=== PATIENT | male | born 1995 | race Caucasian/White ===

== ENCOUNTER 2023-03-16 15:51 | Emergency (ER) | payer SELFPAY ==
[2023-03-16 16:03] VITALS: PULSE 75; RESP 18; TEMP 37.4; O2SAT 100
[2023-03-16 16:06] VITALS: BP 135/71
[2023-03-16 17:12] VITALS: BP 116/71; PULSE 84; RESP 16; O2SAT 98
--- NOTE | 2023-03-16 18:00 | DI.RAD_ITS ---
Exam(s) XR CLAVICLE RT EXAM: XR CLAVICLE RT CLINICAL HISTORY: trauma TECHNIQUE: 2D digital imaging was performed of the right clavicle. Two images were obtained. AP and axial views were obtained. COMPARISON: No exams were available for comparison FINDINGS: BONES: There is an acute for oblique fracture through the midshaft of the right clavicle. There is m inimal displacement. No bony destructive lesion is seen. JOINTS: No dislocation present. SOFT TISSUE: Normal IMPRESSION: Acute right clavicular fracture. DATA REPOSITORY: RADIATION DOSE DELIVERED:
--- NOTE | 2023-03-16 18:00 | DI.RAD_ITS ---
Exam(s) XR CHEST 2V PA LATERAL EXAM: XR CHEST 2V PA LATERAL CLINICAL HISTORY: trauma TECHNIQUE: 2D digital imaging was performed of the chest. Two images were obtained. PA and lateral views were obtained. COMPARISON: There are no priors for comparison. FINDINGS: MEDIASTINUM: Normal. HEART: Normal. PULMONARY VASCULATURE: Normal. LUNGS: Clear. PLEURAL SPACE: No pleural effusion or pneumothorax. BONE:Within normal limits for the patient's age. There is a minimally displaced fracture of the mids haft of the right clavicle. OTHER FINDINGS:Normal. IMPRESSION: 1. No acute pulmonary findings. 2. Acute right clavicular fracture. Please see the dedicated right clavicular x-ray report. DATA REPOSITORY: RADIATION DOSE DELIVERED:
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
--- NOTE | 2023-03-16 19:16 | DI.VRAD_ITS ---
PROCEDURE INFORMATION: Exam: XR Chest Exam date and time: 03/16/2023 18:35 Age: 27 years old Clinical indication: Injury or trauma; Fall; Blunt trauma (contusions or hematomas) TECHNIQUE: Imaging protocol: Radiologic exam of the chest. Views: 2 views. COMPARISON: No relevant prior studies available. FINDINGS: Lungs: No consolidation. Pleural spaces: No pleural effusion. No pneumothorax. Heart/Mediastinum: No cardiomegaly. Bones/joints: Acute right clavicular fracture; please see dedicated films. IMPRESSION: 1. No acute cardiopulmonary pathology. 2. Acute right clavicular fracture; please see dedicated films. Dictated and Authenticated by: Kady Woodward MD. Ordering:ANA MARÍA Constantino MD
[2023-03-16] MEDS: Ibuprofen 600 MG TAB PO (19:36)
== END 2023-03-16 19:36 | disposition home or self-care (01) ==
PROVIDERS: Emergency Provider Emergency Medicine
DX: S42.021A Displaced fracture of shaft of right clavicle, initial encounter for closed fracture (principal); V28.09XA Other motorcycle driver injured in noncollision transport accident in nontraffic accident, initial encounter; S20.219A Contusion of unspecified front wall of thorax, initial encounter
CPT/HCPCS: 99284; 71046; 73000; 99283

== ENCOUNTER 2023-08-05 11:19 | Emergency (ER) | payer SELFPAY ==
[2023-08-05 11:22] VITALS: BP 127/71; PULSE 82; RESP 18; TEMP 36.7; O2SAT 100
--- NOTE | 2023-08-05 11:30 | DI.RAD_ITS ---
Exam(s) XR FOREARM RT XR HAND RT COMPLETE XR WRIST RT COMPLETE EXAM: XR WRIST RT COMPLETE CLINICAL HISTORY: right wrist pain. TECHNIQUE: 2D digital imaging was performed. Three views of the wrist and hand. Two views of the f orearm.. COMPARISON: CR XR HAND RT COMPLETE from 08/05/2023 CR XR FOREARM RT from 08/05/2023 FINDINGS: BONES: There is a nondisplaced fracture through the proximal pole of the navicular. No additional ac [place] fractures are seen. Mild deformity of the distal ulna is likely secondary to an old fracture. Mil d negative ulnar variance. No bony destructive lesion is seen. JOINTS: The carpal bones are normally aligned. The elbow is normally aligned. SOFT TISSUE: Swelling IMPRESSION: Nondisplaced fracture proximal pole navicular. DATA REPOSITORY: RADIATION DOSE DELIVERED:
--- NOTE | 2023-08-05 11:30 | DI.RAD_ITS ---
Exam(s) XR FOREARM RT XR HAND RT COMPLETE XR WRIST RT COMPLETE EXAM: XR WRIST RT COMPLETE CLINICAL HISTORY: right wrist pain. TECHNIQUE: 2D digital imaging was performed. Three views of the wrist and hand. Two views of the f orearm.. COMPARISON: CR XR HAND RT COMPLETE from 08/05/2023 CR XR FOREARM RT from 08/05/2023 FINDINGS: BONES: There is a nondisplaced fracture through the proximal pole of the navicular. No additional ac [place] fractures are seen. Mild deformity of the distal ulna is likely secondary to an old fracture. Mil d negative ulnar variance. No bony destructive lesion is seen. JOINTS: The carpal bones are normally aligned. The elbow is normally aligned. SOFT TISSUE: Swelling IMPRESSION: Nondisplaced fracture proximal pole navicular. DATA REPOSITORY: RADIATION DOSE DELIVERED:
--- NOTE | 2023-08-05 11:30 | DI.RAD_ITS ---
Exam(s) XR FOREARM RT XR HAND RT COMPLETE XR WRIST RT COMPLETE EXAM: XR WRIST RT COMPLETE CLINICAL HISTORY: right wrist pain. TECHNIQUE: 2D digital imaging was performed. Three views of the wrist and hand. Two views of the f orearm.. COMPARISON: CR XR HAND RT COMPLETE from 08/05/2023 CR XR FOREARM RT from 08/05/2023 FINDINGS: BONES: There is a nondisplaced fracture through the proximal pole of the navicular. No additional ac [place] fractures are seen. Mild deformity of the distal ulna is likely secondary to an old fracture. Mil d negative ulnar variance. No bony destructive lesion is seen. JOINTS: The carpal bones are normally aligned. The elbow is normally aligned. SOFT TISSUE: Swelling IMPRESSION: Nondisplaced fracture proximal pole navicular. DATA REPOSITORY: RADIATION DOSE DELIVERED:
[2023-08-05] MEDS: Ibuprofen 600 MG TAB PO (11:40)
[2023-08-05] MEDS: Acetaminophen 500 MG TAB 1000 MG PO (11:40)
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
--- NOTE | 2023-08-05 13:35 | NUR.NOTE ---
Given to Care Managment the referral for [facility] Handdaina fx/Dr Du putting in referral. Want Care Management to check and be sure that pt has appt. Nursing Note:
== END 2023-08-05 13:40 | disposition home or self-care (01) ==
PROVIDERS: Emergency Provider Emergency Medicine
DX: S62.001A Unspecified fracture of navicular [scaphoid] bone of right wrist, initial encounter for closed fracture; Y93.55 Activity, bike riding; W19.XXXA Unspecified fall, initial encounter; M25.531 Pain in right wrist
CPT/HCPCS: 29125; 99284; 73090; 73110; 73130

== ENCOUNTER 2023-08-14 11:25 | Outpatient (CLI) | payer SELFPAY ==
--- NOTE | 2023-08-14 11:00 | DI.RAD_ITS ---
Exam(s) XR WRIST RT COMPL NAVICULAR EXAM: XR WRIST RT COMPL NAVICULAR CLINICAL HISTORY: WRIST F/U. TECHNIQUE: 2D digital imaging was performed of the right wrist. Four views were obtained. Scaphoid, PA, lateral and oblique views were obtained. COMPARISON: CR XR HAND RT COMPLETE from 08/05/2023 CR XR FOREARM RT from 08/05/2023 FINDINGS: BONES: There has been no change in alignment of the nondisplaced fracture the through the proximal po le of the scaphoid. No new fracture is seen. No bony destructive lesion is seen. JOINTS: The carpal bones are normally aligned. The joint spaces are well maintained. SOFT TISSUE: Normal. IMPRESSION: Stable nondisplaced scaphoid fracture. DATA REPOSITORY: RADIATION DOSE DELIVERED:
== END 2023-08-14 11:26 | disposition home or self-care (01) ==
LOC: DIORS 11:25
PROVIDERS: Visit Provider Student in an Organized Health Care Education/Training Program
DX: S62.024D Nondisplaced fracture of middle third of navicular [scaphoid] bone of right wrist, subsequent encounter for fracture with routine healing (principal)
CPT/HCPCS: 73110